=== PATIENT | male | born 1980 | race African-American/Black ===

== ENCOUNTER 2024-03-25 21:20 | Emergency (ER) | payer BC, SELFPAY ==
[2024-03-25 21:24] VITALS: BP 135/87
[2024-03-25 21:37] LABS: % Basophils 0.3 % (0-2); % Eosinophils 0.3 % (0-6); % Immature Granulocytes 0.2 % (0-0.5); % Lymphocytes 24.9 % (20.5-51.1); % Monocytes 7.5 % (1.7-9.3); % Neutrophils 66.8 % (42.2-75.2); Absolute Monocytes 0.9 10^3/uL (0.1-0.6); Absolute Neutrophils 8.1 10^3/uL (1.4-6.5); Hemoglobin 12.6 g/dL (13.0-18.0); Mean Corp Hgb Conc. 33.2 g/dL (33.0-37.0); Mean Corpuscular Hgb 31.7 pg (27.0-31.0); Mean Corpuscular Volume 95.5 fL (80.0-94.0); Mean Platelet Volume 9.3 fL (7.4-10.4); Nucleated Red Blood Cells % 0 % (-); Platelet Count 415 10^3/uL (130-400); Red Blood Cell Count 3.98 10^6/uL (4.70-6.10); Red Cell Dist. Width 12.2 % (11.5-14.5); White Blood Cell Count 12.2 10^3/uL (4.8-10.8)
[2024-03-25 21:54] LABS: ALT (SGPT) 36 U/L (0-50); AST (SGOT) 28 U/L (17-59); Albumin 4.6 g/dl (3.5-5.0); Alkaline Phosphatase 68 U/L (38-126); Blood Urea Nitrogen 21 mg/dl (9-20); Calcium 9.6 mg/dl (8.4-10.2); Carbon Dioxide 24 mmol/L (22-30); Chloride 103 mmol/L (98-107); Glucose 125 mg/dl (70-99); Potassium 4.2 mmol/L (3.5-5.1); Sodium 139 mmol/L (135-145); Total Bilirubin 0.8 mg/dl (0.2-1.3); Total Protein 7.7 g/dl (6.3-8.2); eGFR 54.15
[2024-03-26] MEDS: NSS 1000 IV (02:31)
[2024-03-26 02:34] VITALS: BP 127/82; BMI 33.5
[2024-03-26 03:01] LABS: D-Dimer 0.39 ug/mlFEU (0.00-0.50)
[2024-03-26 03:18] LABS: Procalcitonin 0.06 ng/ml (0.0-0.25)
--- NOTE | 2024-03-26 03:25 | ED.GENMED ---
History of Present Illness
General
Chief Complaint: Cold/Flu/URI Symptoms
Source: patient
Exam Limitations: none
Time Seen by Provider: 03/26/24 01:30
Nursing documentation reviewed up to this point in time: agreed with
History of Present Illness
History of Present Illness:
44-year-old male with a past medical history of hypertension, hyperlipidemia, reportedly chronic kidney disease who presents to the emergency room with persistent cough. Patient reports he has been sick for about 3 weeks with a productive cough�he
reports occasionally coughing up thick sputum and even occasionally streaks of blood. He says that for the first week he was sick he had fever and malaise as well although the symptoms have resolved. He says initially he thought that he had the
flu because his tested positive for influenza (he was never tested personally). Over the past 2 weeks however he has had this lingering cough and congestion�he says that it got slightly better last week but over the past week it worsened once
again. He finally decided to go to urgent care today to be evaluated there he was swabbed for COVID and flu and names were negative and he had a chest x-ray which showed no clear pneumonia; he was recommended to come to the emergency room to be
evaluated. He denies any chest pain. He denies any shortness of breath. He denies any nausea or vomiting�he does admit to some diarrhea.
Review of Systems
Review of Systems
All Other Systems: ROS reviewed and negative except as documented in HPI and ROS
Constitutional: Reports fatigue; Denies fever or chills
EENT: Reports runny nose; Denies sore throat
Respiratory: Reports cough; Denies trouble breathing
Cardiac: Denies chest pain
ABD/GI: Reports diarrhea; Denies abdominal pain, nausea or vomiting
: Denies flank pain
Musculoskeletal: Denies neck pain or back pain
Neurological: Denies dizzy or headache
Phy Exam
Physical Exam
Physical Exam:
General: Awake, alert, oriented x3; no acute distress
Head: Normocephalic, atraumatic
Eyes: Conjunctiva normal, sclera anicteric
Throat: Airway intact, handling secretions
Neck: Trachea midline, supple without meningismus
Lungs: Clear to auscultation bilaterally, no wheezing, rales, rhonchi; frequent coughing
Heart: Regular rate and rhythm, no murmurs, gallops, or rubs
Abd: Soft, non distended, nontender
Neuro: No gross deficits
Extremities: No edema in extremities, equal pulses in all extremities
Scores
Heart Failure Risk
Heart Failure Risk Score: Not Applicable
Heart Score for Chest Pain Patients
STEMI patient?: Not applicable
Withdrawal Assessment of Alcohol
Withdrawal Assessment Completed?: Not applicable
Course
Orders/Labs/Results
Orders:
Orders
03/25/24 21:30
CMP [Comprehensive Metabolic Panel] Urgent
Complete Blood Count/With Diff Urgent
03/26/24 01:33
CR Chest - 2 Views Urgent
Comment:
Reason For Exam: cough
03/26/24 01:34
0.9% Sodium Chloride 1000 ml [Nss] 1,000 ml IV BOLUS
03/26/24 02:30
COVID-19 Antigen Urgent
Source: Nasal Swab
D-Dimer Urgent
Procalcitonin Urgent
PCT Algorithmm Indication: Respiratory
Influenza A+B Rapid Molecular Urgent
HESHAM Source: Nasal Swab
Specimen Description:
03/26/24 03:35
Azithromycin [Zithromax] 500 mg PO NOW STA
Benzonatate [Tessalon Perles] 200 mg PO ONCE ONE
Prednisone [Deltasone] 50 mg PO NOW STA
Abnormal Lab Results
03/25/24
21:30
WBC 12.2 H 10^3/uL
(4.8-10.8)
RBC 3.98 L 10^6/uL
(4.70-6.10)
Hgb 12.6 L g/dL
(13.0-18.0)
Hct 38.0 L %
(39.0-52.0)
MCV 95.5 H fL
(80.0-94.0)
MCH 31.7 H pg
(27.0-31.0)
Plt Count 415 H 10^3/uL
(130-400)
Absolute Neuts (auto) 8.1 H 10^3/uL
(1.4-6.5)
Absolute Monos (auto) 0.9 H 10^3/uL
(0.1-0.6)
BUN 21 H mg/dl
(9-20)
Creatinine 1.6 H mg/dL
(0.7-1.3)
Glucose 125 H mg/dl
(70-99)
03/25/24 21:30
03/25/24 21:30
Vital Signs
Initial and Last Documented VS:
Initial Vital Signs
Temp Pulse Resp BP Pulse Ox
36.9 C 87 18 135/87 98
03/25/24 21:24 03/25/24 21:24 03/25/24 21:24 03/25/24 21:24 03/25/24 21:24
Last Documented Vital Signs
Temp Pulse Resp BP Pulse Ox
36.9 C 75 16 127/82 99
03/25/24 21:24 03/26/24 02:34 03/26/24 02:34 03/26/24 02:34 03/26/24 02:34
MDM/Problems Addressed
Differential Diagnosis Includes:
Bronchitis, pneumonia, URI
MDM/Problems Addressed:
44-year-old male presents for evaluation of persistent cough x 3 weeks. He was seen in urgent care had chest x-ray which was reportedly negative for pneumonia. He had blood work which showed creatinine of 1.7�unclear baseline but he says he has a
history of chronic kidney disease. He was referred to the ER for evaluation. Vitals and exam as above. We sent labs including a CBC which shows a marginal leukocytosis. CMP shows creatinine of 1.6�no baseline for comparison. With his report of
occasional blood streaks can check a D-dimer and an abundance of caution but very low suspicion for PE clinically. Check procalcitonin. Check chest x-ray to confirm no pneumonia. Reassess after the above.
D-dimer negative. Procalcitonin 0.06�goes strongly against diagnosis of pneumonia; reviewed chest x-ray personally and I see no signs of an acute pneumonia on chest x-ray. I suspect that this is a case of bronchitis. Will trial course of
steroids, inhaler, Z-Gurvinder, benzonatate; stable for discharge should follow-up with primary care physician as an outpatient. He feels comfortable with this plan. All questions answered.
*Radiology
Radiology exam reviewed: radiology read reviewed
*Pulse Oximetry
Patient hypoxic: no
*Critical Care Note
Total Time (30-74mins, 75-104mins- exclusive of procedures): Not Applicable
Data Reviewed
Source: patient and records
ED Attending Note
-
Portions of this chart may have been created with voice recognition software.� Occasional wrong word or��sound alike� substitutions may have occurred due to the inherent limitations of voice recognition software.
Discharge Plan
Departure
Patient Disposition: Home (Routine Discharge)
Date of Disposition: 03/26/24
Time of Disposition: 03:32
Patient with high blood pressure during this ER visit?: No
Discharge Problem:
Bronchitis
Instructions: Acute Bronchitis, Adult (DC)
Prescriptions:
New
prednisone 10 mg Tablet
See Rx Instructions .ROUTE .COMPLEX Qty: 30 0RF
Rx Instructions:
Take By Mouth:
40 mg daily x3 days, 30 mg daily x3 days,
20 mg daily x3 days, 10 mg daily x3 days.
albuterol sulfate 90 mcg/actuation HFA aerosol inhaler
2 puff inhalation Q6H PRN (Reason: coughing, wheezing) Qty: 6.7 0RF
benzonatate 200 mg capsule
200 mg PO BID PRN (Reason: Cough) Qty: 20 0RF
azithromycin [Zithromax] 250 mg tablet
250 mg PO DAILY Qty: 4 0RF
Referrals:
UNKNOWN - PT DOES,NOT KNOW [Family Provider] -
Activity Restrictions/Additional Instructions:
Thank you for visiting the Emergency Department at [facility].
1. Please schedule a follow up appointment as directed. Call first thing tomorrow morning to make an appointment.
2. If indicated, please take your medications as instructed and indicated on discharge paperwork.
3. If any of your symptoms do not improve, or persist, or become more severe within 6-12 hours, please return to the emergency department for further care.
4. Please return to the emergency department if you develop a headache, neck pain/stiffness, fever greater than 100.4F, chest pain, shortness of breath, persistent nausea, vomiting, slurred speech, difficulty walking, numbness/tingling, weakness,
signs of infection or any other symptoms that are worrisome to you.
Please call [phone] if you have any questions.
Interventions
Interventions:
*Risk Screen - Suicide Last Done: 03/25/24 21:24
*General Assessment Last Done: 03/25/24 21:24
*Neglect/Abuse Screening Last Done: 03/25/24 21:24
*ED COVID-19 Vaccine History Last Done: 03/25/24 21:24
ED- Pulmonary Assessment Last Done: 03/26/24 02:34
Discharge Date and Time
Print Language: JAMA[place]
[2024-03-26] MEDS: ZITHROMAX 500 MG PO (04:36)
[2024-03-26] MEDS: TESSALON PERLES 200 MG PO (04:36)
[2024-03-26] MEDS: DELTASONE 50 MG PO (04:37)
[2024-03-26 07:10] LABS: COVID-19 Antigen Negative (Negative)
== END 2024-03-26 04:38 | disposition home or self-care (01) ==
LOC: EMR 21:20
PROVIDERS: Emergency Medicine; EMERGENCY PHYSICIAN Emergency Medicine
DX: J40 Bronchitis, not specified as acute or chronic (principal); E78.00 Pure hypercholesterolemia, unspecified; I12.9 Hypertensive chronic kidney disease with stage 1 through stage 4 chronic kidney disease, or unspecified chronic kidney disease; N18.9 Chronic kidney disease, unspecified
CPT/HCPCS: 99283; 96360; 71046; 80053; 84145; 85025; 85379; 87502; 87811

== ENCOUNTER → 2024-12-07 15:28 | Outpatient (REF) | payer BC, SELFPAY | LOC: HWRAD 15:28 | PROVIDERS: ATTENDING PHYSICIAN Family Medicine | DX: N63.20 Unspecified lump in the left breast, unspecified quadrant (principal); R22.2 Localized swelling, mass and lump, trunk | CPT/HCPCS: 76604 ==

== ENCOUNTER → 2024-12-08 10:13 | Outpatient (REF) | payer BC, SELFPAY | LOC: WDC 10:13 | PROVIDERS: ATTENDING PHYSICIAN Family Medicine | DX: N63.20 Unspecified lump in the left breast, unspecified quadrant (principal) | CPT/HCPCS: 76642; 77062; 77066 ==